=== PATIENT | male | born 1975 | race Caucasian/White ===

== ENCOUNTER 2020-11-26 20:06 | Emergency (ER) | payer BC ==
[~2020-11-26] VITALS: Ht 180.3 cm; Wt 159.1 kg
[2020-11-26 20:15] VITALS: Ht 180.3 cm; Wt 159.1 kg
[2020-11-26] MEDS ORDERED: PRAVASTATIN SOD10 MG PO (20:15)
[2020-11-26] MEDS ORDERED: TESTOSTERONE (20:16)
[2020-11-26] MEDS ORDERED: ESTROGEN BLOCKER (20:17)
[2020-11-26 20:51] LABS: BASOPHILS 1.4 % (0-2); HEMOGLOBIN 13.8 g/dL (13.5-17.5); LYMPHOCYTES 13.9 % (15-50); MCH 25.4 pg (26.0-34.0); MCHC 32.2 g/dL (31.0-37.0); MCV 78.8 fL (80.0-100.0); MEAN PLATELET VOLUME 7.9 fL (7.4-10.4); MONOCYTES 10.9 % (2-11); NEUTROPHILS 72.8 % (40-80); PLATELET COUNT 320 10x3/uL (130-400); RBC 5.46 10x6/uL (4.20-6.10); RDW 16.8 % (11.5-14.5); WBC 10.1 10x3/uL (4.8-10.8)
[2020-11-26 20:56] LABS: APTT 26.3 SECONDS (22.8-39.4); INR 1.19 (0.85-1.17)
[2020-11-26 20:58] LABS: CALC OSMOLALITY 278 mosm/kg (275-300); CARBON DIOXIDE 22.4 mmol/L (21.0-32.0); CHLORIDE - SERUM 107 mmol/L (98-107); CREATININE - SERUM 1.3 mg/dL (0.6-1.3); GLUCOSE 108 mg/dL (74-106); POTASSIUM - SERUM 3.9 mmol/L (3.5-5.1); SODIUM 139 mmol/L (136-145); UREA NITROGEN 13 mg/dL (7-18); eGFR NON AFRICAN AMERICAN 63 mL/min (90-120)
[2020-11-26 21:15] LABS: ALBUMIN 3.1 g/dL (3.4-5.0); ALKALINE PHOSPHATASE 115 U/L (30-120); ALT (SGPT) 37 U/L (10-68); BILIRUBIN - TOTAL 0.28 mg/dL (0.2-1.3); CREATINE KINASE 181 UL (21-232); MAGNESIUM - SERUM 2.2 mg/dL (1.8-2.4); PROTEIN - SERUM 7.1 g/dL (6.4-8.2)
[2020-11-26 21:24] LABS: TROPONIN-I < 0.017 ng/mL (0.000-0.060)
[2020-11-26 22:22] VITALS: BP 144/66
== END 2020-11-26 22:22 | disposition home or self-care (01) ==
LOC: EDBD 20:06 → D.ER 20:06
PROVIDERS: Family Medicine
DX: R07.89 Other chest pain (principal); E78.5 Hyperlipidemia, unspecified